=== PATIENT | male | born 1965 | race Two or more races ===

== ENCOUNTER 2024-06-18 08:58 | Emergency (ER) | payer OTHER ==
[~2024-06-18] VITALS: Ht 175.3 cm; Wt 114.0 kg
--- NOTE | 2024-06-18 09:19 | ED.PDOC ---
GI ASSESSMENT HPI Comments A 59 YEAR OLD MALE PRESENTS TO THE ED WITH COMPLAINT OF LLQ ABDOMINAL PAIN. PATIENT STATES HE HAS BEEN EXPERIENCING LEFT LOWER QUADRANT ABDOMINAL PAIN THAT STARTED YESTERDAY. PATIENT DESCRIBES HIS PAIN A SHARP PAIN THAT COMES AND GOES. PATIENT NOTES HE HAS A HISTORY OF AN UMBILICAL HERNIA IN THE PAST. PATIENT DENIES FEVER, CHILLS, SHORTNESS OF BREATH, CHEST PAIN, NAUSEA, VOMITING, HEADACHE, OR OTHER COMPLAINTS. NO OTHER SYMPTOMS OR MODIFYING FACTORS AT THIS TIME. PATIENT IS ALERT, ORIENTED X 4, AND HAS STEADY GAIT. Chief Complaint: LEFT LOWER ABD PAIN Time Seen by MD: 09:02 Reviewed Notes: Nurses Notes, Medications, Allergies Allergies: Coded Allergies: NO KNOWN ALLERGIES (Unverified , 06/18/24) Home Meds Active Scripts Ibuprofen (Ibuprofen) 800 Mg Tab, 1 TAB PO TID, #30 TAB Prov:STEPHON SHEIKH 06/18/24 Ciprofloxacin Hcl (Cipro) 500 Mg Tab, 1 TAB PO BID, #20 TAB Prov:STEPHON SHEIKH 06/18/24 Metronidazole (Flagyl) 500 Mg Tab, 1 TAB PO BID, #14 TAB Prov:STEPHON SHEIKH 06/18/24 Information Source: Patient Mode of Arrival: Ambulatory Timing: Days Duration: Since onset, Days Prehospital treatment: None Quality: Aching, Cramping Vomitus: None Stool: Normal Severity: Moderate Recent: None Recent Hx of: None Pain Location: LLQ Modifying Factors: Nothing Associated sign and symptoms: Abdominal Pain Past Medical History PAST MEDICAL HISTORY: Denies Surgical History: Denies all surgeries Family History Family History: Reviewed,noncontributory to illness Social History Smoker: Non-Smoker Alcohol: Denies ETOH Use Drugs: Denies Drug Use Lives In: Home Constitutional: denies: chills, diaphoresis, fatigue, fever, malaise, sweats, weakness, others EENTM: denies: blurred vision, double vision, ear bleeding, ear discharge, ear drainage, ear pain, ear ringing, eye pain, eye redness, hearing loss, mouth pain, mouth swelling, nasal discharge, nose bleeding, nose congestion, nose pain, photophobia, tearing, throat pain, throat swelling, voice changes, others Respiratory: denies: cough, hemoptysis, orthopnea, SOB at rest, shortness of breath, SOB with excertion, stridor, wheezing, others Cardiovascular: denies: chest pain, dizzy spells, diaphoresis, Dyspnea on exertion, edema, irregular heart beat, left arm pain, lightheadedness, palpitations, PND, syncope, others Gastrointestinal: reports: abdominal pain (LLQ ABDOMINAL PAIN); denies: abdomen distended, blood streaked bowels, constipated, diarrhea, dysphagia, difficulty swallowing, hematemesis, melena, nausea, poor appetite, poor fluid intake, rectal bleeding, rectal pain, vomiting, others Genitourinary: denies: burning, dysuria, flank pain, frequency, hematuria, incontinence, penile discharge, penile sore, pain, testicle pain, testicle swelling, urgency, others Neurological: denies: dizziness, fainting, headache, left sided numbness, left sided weakness, numbness, paresthesia, pre-existing deficit, right sided numbness, right sided weakness, seizure, speech problems, tingling, tremors, weakness, others Musculoskeletal: denies: back pain, gout, joint pain, joint swelling, muscle pain, muscle stiffness, neck pain, others Integumetry: denies: bruises, change in color, change in hair/nails, dryness, laceration, lesions, lumps, rash, wounds, others Allergic/Immunocompromised: denies: Difficulty Healing, Frequent Infections, Hives, Itching, others Hematologic/Lymphatic: denies: anemia, blood clots, easy bleeding, easy bruising, swollen glands, others Endocrine: denies: excessive hunger, excessive sweating, excessive thirst, excessive urination, flushing, intolerance to cold, intolerance to heat, unexplained weight gain, unexplained weight loss, others Psychiatric: denies: anxiety, bipolar disorder, depression, hopeless, panic disorder, schizophrenia, sleepless, suicidal, others All Other Systems: Reviewed and Negative Physical Exam General Appearance: No Apparent Distress, Normal HEENT: Normal ENT Inspection, PERRL/EOMI, Pharynx Normal, TMs Normal Neck: Full Range of Motion, Non-Tender, Normal, Normal Inspection Respiratory: Chest Non-Tender, Lungs Clear, No Accessory Muscle Use, No Respiratory Distress, Normal Breath Sounds Cardiovascular: No Edema, No JVD, No Murmur, No Gallop, Normal Peripheral Pulses, Regular Rate/Rhythm Breast Exam: Deferred Gastrointestinal: LLQ, No Organomegaly, No Pulsatile Mass, Normal Bowel Sounds, Soft, Tenderness (LEFT LOWER ABD, NO GUARDING AND REBOUND TENDERNESS. ) Genitalia: Deferred Pelvic: Deferred Rectal: Deferred Extremities: No calf tenderness, Normal capillary refill, Normal inspection, Normal range of motion, Non-tender, No pedal edema Musculoskeletal : Apperance: Normal Neurologic: Alert, coutierier II-XII nml as Tested, No Motor Deficits, Normal Affect, Normal Mood, No Sensory Deficits Cerebellar Function: Normal Reflexes: Normal Skin: Dry, Normal Color, Warm Peripheral Pulses: 2+ carotid (R), 2+ carotid (L) Lymphatic: No Adenopathy Was a procedure done? Was a procedure done?: No GI differential Dx Differential Diagnosis: Diverticular disease, Hernia, Pancreatitis, Kidney Stone X-Ray, Labs, Meds, VS Vital Signs Date Time Temp Pulse Resp B/P (MAP) Pulse Ox O2 Delivery O2 Flow Rate FiO2 06/18/24 10:53 97 18 96 Room Air 06/18/24 10:53 97.3 97 18 158/96 (116) 96 97.3 06/18/24 09:35 97.3 96 18 158/96 (116) 97 Lab Test 06/18/24 09:15 Range/Units White Blood Count 10.9 H 4.4-10.8 10^3/uL Red Blood Count 4.67 4.5-5.90 10^6/uL Hemoglobin 15.2 13.5-17.5 g/dL Hematocrit 44.7 41.0-53.0 % Mean Corpuscular Volume 95.7 80.0-100.0 fL Mean Corpuscular Hemoglobin 32.5 H 28.0-32.0 pg Mean Corpuscular Hemoglobin Concent 33.9 32.0-36.0 g/dL Red Cell Distribution Width 12.5 11.8-14.3 % Platelet Count 287 140-450 10^3/uL Mean Platelet Volume 10.0 6.9-10.8 fL Neutrophils (%) (Auto) 72.4 37.0-80.0 % Lymphocytes (%) (Auto) 19.3 10.0-50.0 % Monocytes (%) (Auto) 6.8 0.0-12.0 % Eosinophils (%) (Auto) 1.1 0.0-7.0 % Basophils (%) (Auto) 0.4 0.0-2.0 % Neutrophils # (Auto) 7.9 1.6-8.6 10 ^3/uL Lymphocytes # (Auto) 2.1 0.4-5.4 10 ^3/uL Monocytes # (Auto) 0.7 0-1.3 10 ^3/uL Eosinophils # (Auto) 0.1 0-0.8 10 ^3/uL Basophils # (Auto) 0 0-0.2 10 ^3/uL Nucleated Red Blood Cells 0.1 % Sodium Level 139 136-145 mmol/L Potassium Level 4.1 3.5-5.1 mmol/L Chloride Level 107 98-107 mmol/L Carbon Dioxide Level 25 20-31 mmol/L Anion Gap 7 5-15 Blood Urea Nitrogen 10 9-23 mg/dL Creatinine 1.02 0.700-1.30 mg/dL Glomerular Filtration Rate Calc 85 >90 mL/min BUN/Creatinine Ratio 9.8 L 10.0-20.0 Serum Glucose 218 H 74-106 mg/dL Calcium Level 10.3 8.7-10.4 mg/dL Current Medications Medications (Trade) Dose Ordered Sig/Rico Route Start Time Stop Time Status Last Admin Ketorolac Tromethamine (Toradol Injection) 60 mg ONCE ONCE IM 06/18/24 10:15 06/18/24 10:16 DC 06/18/24 10:[address] AB PEL WO CON-NO ORAL OR IV INDICATION: LEFT LOWER ABD PAIN EXAM DATE: 06/18/2024 09:32 AM COMPARISON: None RADIATION DOSE: CTDIvol: 22.99 mGy, DLP: 1300.05 mGy*cm PROCEDURE: Helical CT images were obtained of the abdomen and pelvis without IV contrast Sagittal and coronal reconstructions are provided. ORAL CONTRAST: None. ADDITIONAL IMAGES / REFORMATS: None All CT scans at this medical facility are performed using dose modulation techniques as appropriate to a performed exam including the following: Automated exposure control was utilized; adjustment of the MA and/or KV according to patient size; and use of iterative reconstruction technique. FINDINGS: LUNG BASE: 4 mm left lower lobe subpleural pulmonary nodule. LIVER: Normal. GALLBLADDER AND BILIARY TREE: No calcified gallstones. Normal caliber wall. No intra- or extrahepatic biliary ductal dilation. PANCREAS: Normal. SPLEEN: Normal. BOWEL: Severe colonic diverticulosis with inflammatory fat stranding seen in the sigmoid colon. ADRENALS: Normal. KIDNEYS AND URETER: Punctate nonobstructive left nephrolithiasis. BLADDER: Normal. REPRODUCTIVE ORGANS: Normal. LYMPH NODES:No lymphadenopathy. PERITONEUM: No ascites or free air. No other fluid collection. VESSELS: Scattered atherosclerotic calcifications are noted. RETROPERITONEUM: Normal. ABDOMINAL WALL: Normal. BONES: Scattered osseous degenerative changes are noted. IMPRESSION: Severe colonic diverticulosis with inflammatory fat stranding seen in the sigmoid colon consistent with acute diverticulitis. ATED BY: ERICH HENSON MD DICTATED DATE/TIME: 06/18/24 1016 SIGNED BY: ERICH HENSON MD SIGNED DATE/TIME: 06/18/24 1016 CC: X-Ray, Labs, Meds, VS Comment LABS ORDERED: CBC, BMP, UA REVIEWED AND INTERPRETED RESULTS: WBC 10.9 TREATMENT: TORADOL 60MG IM A 59YEAR OLD MALE PRESENTED TO THE ED C/O LEFT LOWER QUADRANT ABDOMINAL PAIN THAT STARTED YESTERDAY. UPON MY PHYSICAL EXAMINATION, THE PATIENT HAD MILD GUAR DING TO HIS LEFT LOWER QUADRANT UPON PALPATION, BUT NO REBOUND TENDERNESS, AND WAS OBTURATOR SIGN NEGATIVE. MY DIFFERENTIAL DIAGNOSIS INCLUDES, DIVERTICULITIS, PANCREATITIS, UTI, KIDNEY STONE, MUSCLE STRAIN, INGUINAL HERNIA. LABS WERE ORDERED FOR THE PATIENT AND THERE WERE NO ACUTE FINDINGS. A CT SCAN OF THE PATIENT'S ABDOMEN AND PELVIS WAS DONE WHICH REVEALED ACUTE DIVERTICULITIS, BUT NO OTHER ACUTE FINDINGS. PATIENT WAS MEDICATED HERE IN THE ED WITH TORADOL 60 MG IM. ALTHOUGH THE PATIENT'S CT SCAN REVEALS ACUTE DIVERTICULITIS, THE PATIENT DOES NOT HAVE A SIGNIFICANTLY HIGH WHITE BLOOD COUNT OR INTRACTABLE PAIN AND THEREFORE DOES NOT NEED ADMISSION. THE PATIENT NOTES HIS PAIN WAS ALLEVIATED BY THE TORADOL INJECTION. I HAVE DETERMINED THE PATIENT IS SAFE TO DISCHARGE HOME AND CAN RECEIVE OUTPATIENT TREATMENT. PATIENT WILL BE PRESCRIBED CIPRO AND FLAGYL AND I HAVE INSTRUCTED HIM TO FOLLOW UP WITH HIS PRIMARY CARE PHYSICIAN IN 1-2 DAYS. Images Reviewed?: Images reviewed and evaluated by me Time of 1ST Reevaluation: 11:00 Reevaluation 1ST: Improved Patient Education/Counseling: Diagnosis, Treatment, Need For Follow Up Family Education/Counseling: Diagnosis, Treatment, Need For Follow Up Medical Screening: No EMC Exist At This Time Departure 1 Departure Time of Disposition: 11:00 Impression: Primary Impression: Acute diverticulitis Disposition: 01 HOME / SELF CARE / HOMELESS Condition: Stable Additional Instructions: FOLLOW-UP WITH PCP IN 1 TO 2 DAYS. TAKE MEDICATIONS PRESCRIBED. RETURN TO ED FOR ANY NEW OR WORSENING SYMPTOMS. e-Prescriptions Ibuprofen (Ibuprofen) 800 Mg Tab 1 TAB PO TID, #30 TAB Prov: STEPHON SHEIKH 06/18/24 Ciprofloxacin Hcl (Cipro) 500 Mg Tab 1 TAB PO BID, #20 TAB Prov: STEPHON SHEIKH 06/18/24 Metronidazole (Flagyl) 500 Mg Tab 1 TAB PO BID, #14 TAB Prov: STEPHON SHEIKH 06/18/24 Discharged With: Self Critical Care Note Critical Care Time?: No Stability Stability form required: No I personally scribed for STEPHON SHEIKH ([email or web address]) on 06/18/24 at 09:19. Electronically submitted by Myles Rodriguez ([employer]). I personally scribed for STEPHON SHEIKH ([email or web address]) on 06/18/24 at 10:36. Electronically submitted by Myles Rodriguez ([email or web address]). I personally scribed for STEPHON SHEIKH ([email or web address]) on 06/18/24 at 10:52. Electronically submitted by Myles Rodriguez ([email or web address]). STEPHON SHEIKH Jun 18, 2024 09:19
[2024-06-18 09:45] LABS: Basophils # (auto) 0 10 ^3/uL (0-0.2); Basophils % (auto) 0.4 % (0.0-2.0); Eosinophils # (auto) 0.1 10 ^3/uL (0-0.8); Eosinophils % (auto) 1.1 % (0.0-7.0); Hematocrit 44.7 % (41.0-53.0); Hemoglobin 15.2 g/dL (13.5-17.5); Lymphocytes # (auto) 2.1 10 ^3/uL (0.4-5.4); Lymphocytes % (auto) 19.3 % (10.0-50.0); Mean Corpuscular Hemoglobin 32.5 pg (28.0-32.0); Mean Corpuscular Hgb Conc. 33.9 g/dL (32.0-36.0); Mean Corpuscular Volume 95.7 fL (80.0-100.0); Monocytes # (auto) 0.7 10 ^3/uL (0-1.3); Monocytes % (auto) 6.8 % (0.0-12.0); Neutrophils # (auto) 7.9 10 ^3/uL (1.6-8.6); Neutrophils % (auto) 72.4 % (37.0-80.0); Nucleated Red Blood Cells % 0.1 %; Platelet Count (auto) 287 10^3/uL (140-450); Red Blood Cells 4.67 10^6/uL (4.5-5.90); Red Cell Distribution Width 12.5 % (11.8-14.3); White Blood Cell 10.9 10^3/uL (4.4-10.8)
[2024-06-18 09:51] LABS: Chloride 107 mmol/L (98-107); Potassium 4.1 mmol/L (3.5-5.1); Sodium 139 mmol/L (136-145)
[2024-06-18 09:52] LABS: Anion Gap 7 (5-15); Calcium 10.3 mg/dL (8.7-10.4); Carbon Dioxide 25 mmol/L (20-31)
[2024-06-18 09:57] LABS: BUN/Creatinine Ratio 9.8 (10.0-20.0); Blood Urea Nitrogen 10 mg/dL (9-23); Glucose 218 mg/dL (74-106)
[2024-06-18] MEDS ORDERED: KETOROLAC TROMETH 60MG/2ML VIAL ONE (10:17)
--- NOTE | 2024-06-18 10:18 | DVH ---
CT CT AB PEL WO CON-NO ORAL OR IV INDICATION: LEFT LOWER ABD PAIN EXAM DATE: 06/18/2024 09:32 AM COMPARISON: None RADIATION DOSE: CTDIvol: 22.99 mGy, DLP: 1300.05 mGy*cm PROCEDURE: Helical CT images were obtained of the abdomen and pelvis without IV contrast Sagittal an d coronal reconstructions are provided. ORAL CONTRAST: None. ADDITIONAL IMAGES / REFORMATS: None All CT scans at this medical facility are performed using dose modulation techniques as appropriate t o a performed exam including the following: Automated exposure control was utilized; adjustment of th e MA and/or KV according to patient size; and use of iterative reconstruction technique. FINDINGS: LUNG BASE: 4 mm left lower lobe subpleural pulmonary nodule. LIVER: Normal. GALLBLADDER AND BILIARY TREE: No calcified gallstones. Normal caliber wall. No intra- or extrahepatic biliary ductal dilation. PANCREAS: Normal. SPLEEN: Normal. BOWEL: Severe colonic diverticulosis with inflammatory fat stranding seen in the sigmoid colon. ADRENALS: Normal. KIDNEYS AND URETER: Punctate nonobstructive left nephrolithiasis. BLADDER: Normal. REPRODUCTIVE ORGANS: Normal. LYMPH NODES:No lymphadenopathy. PERITONEUM: No ascites or free air. No other fluid collection. VESSELS: Scattered atherosclerotic calcifications are noted. RETROPERITONEUM: Normal. ABDOMINAL WALL: Normal. BONES: Scattered osseous degenerative changes are noted. IMPRESSION: Severe colonic diverticulosis with inflammatory fat stranding seen in the sigmoid colon consistent wi acute diverticulitis.
[2024-06-18] MEDS: KETOROLAC TROMETH 60MG/2ML VIAL IM ONE (10:21)
[2024-06-18] MEDS ORDERED: METR-344 PO (10:52)
[2024-06-18] MEDS ORDERED: CIPR-173 PO (10:52)
[2024-06-18] MEDS ORDERED: IBUP-1456 PO (10:52)
[2024-06-18 10:53] VITALS: BP 158/96; PULSE 97; RESP 18; TEMP 97.3; O2SAT 96
== END 2024-06-18 10:56 | disposition home or self-care (01) ==
LOC: EDSEX 08:58 → ER 08:58
DX: K57.92 Diverticulitis of intestine, part unspecified, without perforation or abscess without bleeding (principal); Z79.899 Other long term (current) drug therapy; Z79.1 Long term (current) use of non-steroidal anti-inflammatories (NSAID)
CPT/HCPCS: 36415; 74176; 80048; 85025; 96372; 99285; J1885